=== PATIENT | female | born 1970 | race American Indian/Alaskan Native ===

== ENCOUNTER 2018-08-13 06:56 | Day surgery (SDC) | payer MEDICARE ==
[2018-08-13] MEDS ORDERED: NACL 0.9% 1000 ML 1,000 ML IV SCH (07:00)
[2018-08-13] MEDS ORDERED: DIPRIVAN 10 MG/ML IV ONE (09:53)
[2018-08-13 10:43] VITALS: BP 152/89
== END 2018-08-13 06:57 | disposition home or self-care (01) ==
LOC: GIO 06:56
PROVIDERS: ATTEND Specialist
DX: K30 Functional dyspepsia (principal); K44.9 Diaphragmatic hernia without obstruction or gangrene; E66.01 Morbid (severe) obesity due to excess calories; E78.00 Pure hypercholesterolemia, unspecified; I10 Essential (primary) hypertension; G47.30 Sleep apnea, unspecified; M19.90 Unspecified osteoarthritis, unspecified site; Z98.84 Bariatric surgery status; Z68.44 Body mass index [BMI] 60.0-69.9, adult; Z79.899 Other long term (current) drug therapy; Z87.891 Personal history of nicotine dependence
CPT/HCPCS: 43235; 88305; 88342; J2704; J7030